=== PATIENT | male | born 1965 | race Caucasian/White ===

== ENCOUNTER 2016-09-02 13:17 | Inpatient (IN) | payer OTHER ==
[2016-09-02 16:22] VITALS: BMI 20.1
--- NOTE | 2016-09-02 17:26 | HP ---
COWS - Scale Resting Pulse: 0= IN 80 or Below Sweatin=Flushed/Facial Moisture Restless Observation: 1= Difficult to Sit Still Pupil Size: 0= Normal to Room Light Bone or Joint Aches: 2= Severe Diffuse Aches Runny Nose/ Eye Tearin= Runny Nose/Eyes GI Upset > 30mins: 0= None Tremor Observation: 2= Slight Tremor Visible Yawning Observation: 2= >3x During Session Anxiety or Irritability: 2=Irritable/Anxious Goose Flesh Skin: 3=Piloerection COWS Score: 16 Admission ROS S - HPI Chief Complaint: I want to be detoxed and get my life back. Allergies/Adverse Reactions: Allergies Allergy/AdvReac Type Severity Reaction Status Date / Time No Known Allergies Allergy Verified 09/02/16 17:08 History of Present Illness: pt is a 51yr old male with a history of heroin dependence seeking detox for treatment. Exam Limitations: No Limitations - Ebola screening Have you traveled outside of the country in the last 21 days: No Have you had contact with anyone from an Ebola affected area: No Have you been sick,other than usual withdrawal symptoms: No Do you have a fever: No - Review of Systems Constitutional: Chills, Diaphoresis, Loss of Appetite, Night Sweats, Changes in sleep, Unintentional Wgt. Loss EENT: reports: Blurred Vision, Tearing, Nose Congestion Respiratory: reports: No Symptoms reported Cardiac: reports: No Symptoms Reported GI: reports: Poor Appetite, Poor Fluid Intake : reports: No Symptoms Reported Musculoskeletal: reports: No Symptoms Reported Integumentary: reports: Flushing, Sweating Neuro: reports: Tingling, Tremors Endocrine: reports: Excessive Sweating, Flushing, Intolerance to Cold, Intolerance to Heat Hematology: reports: No Symptoms Reported Psychiatric: reports: No Sypmtoms Reported, Judgement Intact, Mood/Affect Appropiate, Orientated x3, Agitated, Anxious Other Systems: Reviewed and Negative Patient History - Patient Medical History Hx Anemia: No Hx Asthma: No Hx Chronic Obstructive Pulmonary Disease (COPD): No Hx Cancer: No Hx Cardiac Disorders: No Hx Congestive Heart Failure: No Hx Hypertension: No Hx Hypercholesterolemia: No Hx Pacemaker: No HX Cerebrovascular Accident: No Hx Seizures: No Hx Diabetes: No Hx Gastrointestinal Disorders: No Hx Liver Disease: No Hx Genitourinary Disorders: No Hx Sexually Transmitted Disorders: No Hx Renal Disease (ESRD): No Hx Thyroid Disease: No Hx Human Immunodeficiency Virus (HIV): No (negative) Hx Hepatitis C: No (negative) Hx Depression: No Hx Suicide Attempt: No Hx Bipolar Disorder: No Hx Schizophrenia: No Other Medical History: insomnia - Patient Surgical History Past Surgical History: Yes Hx Neurologic Surgery: No Hx Cataract Extraction: No Hx Cardiac Surgery: No Hx Lung Surgery: No Hx Breast Surgery: No Hx Breast Biopsy: No Hx Abdominal Surgery: No Hx Appendectomy: No Hx Cholecystectomy: No Hx Genitourinary Surgery: No Hx Section: No Hx Orthopedic Surgery: No Other Surgical History: removal of lipoma left shoulder Anesthesia Reaction: No - PPD History Previous Implant?: Yes Documented Results: Negative w/o proof PPD to be Administered?: Yes - Reproductive History Patient is a Female of Child Bearing Age (11 -55 yrs old): No - Smoking Cessation Smoking history: Current every day smoker Have you smoked in the past 12 months: Yes Aproximately how many cigarettes per day: 1 If you are a former smoker, when did you quit?: 2009 Hx Chewing Tobacco Use: No Initiated information on smoking cessation: Yes 'Breaking Loose' booklet given: 09/02/16 - Substance & Tx. History Hx Alcohol Use: Yes Hx Substance Use: Yes Substance Use Type: Alcohol, Heroin Hx Substance Use Treatment: Yes - Substances Abused Alcohol-beer Route: Oral Frequency: 3-6 times per week Amount used: 3 (12 oz.) Age of first use: 14 Date of Last Use: 09/02/16 Heroin Route: Inhalation Frequency: Daily Amount used: 5 bags daily Age of first use: 17 Date of Last Use: 09/02/16 Family Disease History - Family Disease History Family History: Denies Admission Physical Exam BHS - Vital Signs Vital Signs: Vital Signs - 24 hr 09/02/16 16:15 Temperature 97 F L Pulse Rate 66 Respiratory 20 Rate Blood Pressure 109/80 - Physical General Appearance: Yes: Appropriately Dressed, Moderate Distress, Thin, Tremorous, Irritable, Sweating, Anxious HEENTM: Yes: Hearing grossly Normal, Normal Voice, Nasal Congestion, Rhinorrhea Respiratory: Yes: Lungs Clear, Normal Breath Sounds, No Respiratory Distress Neck: Yes: No masses,lesions,Nodules Breast: Yes: Within Normal Limits Cardiology: Yes: Regular Rhythm, Regular Rate, S1, S2 Abdominal: Yes: Normal Bowel Sounds, Non Tender, Soft Genitourinary: Yes: Within Normal Limits Back: Yes: Normal Inspection Musculoskeletal: Yes: full range of Motion, Gait Steady Extremities: Yes: Normal Capillary Refill, Normal Inspection, Non-Tender, Tremors Neurological: Yes: Fully Oriented, Alert, Normal Response Integumentary: Yes: Normal Color, Diaphoresis Lymphatic: Yes: Within Normal Limits - Diagnostic (1) Nicotine dependence Current Visit: Yes Status: Chronic Qualifiers: Nicotine product type: cigarettes Substance use status: uncomplicated Qualified Code(s): F17.210 - Nicotine dependence, cigarettes, uncomplicated (2) Opioid dependence with withdrawal Current Visit: Yes Status: Chronic (3) Weight loss Current Visit: Yes Status: Chronic (4) Alcohol dependence Current Visit: No Status: Chronic Comment: drinks very little (5) Insomnia Current Visit: Yes Status: Chronic Cleared for Admission BHS - Detox or Rehab Detox Regimen/Protocol: Methadone BHS Breath Alcohol Content Breath Alcohol Content: 0 Urine Drug Screen - Results Drug Screen Negative: No Urine Drug Screen Results: OPI-Opiates
[2016-09-02] MEDS ORDERED: MENTHOL/PHENOL 1 EACH UD MM PRN (17:33)
[2016-09-02] MEDS ORDERED: hydrOXYzine PAMOATE 50 MG CAPSULE (FP) PO PRN (17:33)
[2016-09-02] MEDS ORDERED: LOPERAMIDE HCL 2 MG CAPSULE PO PRN (17:33)
[2016-09-02] MEDS ORDERED: MAGNESIUM CITRATE 300 ML BOTTLE PO PRN (17:33)
[2016-09-02] MEDS ORDERED: ACETAMINOPHEN 325 MG TABLET (FP) PO PRN (17:33)
[2016-09-02] MEDS ORDERED: P-EPHED 60MG/TRIPROLIDI 2.5MG TABLET PO PRN (17:33)
[2016-09-02] MEDS ORDERED: MAG HYDROX/AL HYDROX/SIMETH 30 ML UNIT-DOSE CUP PO PRN (17:33)
[2016-09-02] MEDS ORDERED: IBUPROFEN 400 MG TABLET (FP) PO PRN (17:33)
[2016-09-02] MEDS ORDERED: MAGNESIUM HYDROX 2400MG/30ML ORAL SUSPENSION 30 ML CUP PO PRN (17:33)
[2016-09-02] MEDS ORDERED: guaiFENesin/D-METHORPHAN HB 10 ML UNIT-DOSE CUPS PO PRN (17:33)
[2016-09-02] MEDS ORDERED: diphenhydrAMINE HCL 50 MG CAPSULE PO PRN (17:33)
[2016-09-02] MEDS ORDERED: METHADONE HCL 10 MG TABLET (FOR DETOX USE ONLY) PO ONE ×2 (18:45→23:00)
[2016-09-02] MEDS: diazePAM 5 MG TABLET PO PRN (19:41)
[2016-09-02] MEDS: THIAMINE HCL 100 MG TABLET (FP) PO SCH (22:16)
[2016-09-02 22:34] LABS: URINE APPEARANCE CLEAR; URINE BILIRUBIN NEGATIVE (NEGATIVE); URINE BLOOD NEGATIVE (NEGATIVE); URINE COLOR STRAW; URINE GLUCOSE (UA) NEGATIVE (NEGATIVE); URINE KETONE NEGATIVE (NEGATIVE); URINE LEUK ESTERASE NEGATIVE (NEGATIVE); URINE NITRITE NEGATIVE (NEGATIVE); URINE PROTEIN NEGATIVE (NEGATIVE); URINE UROBILINOGEN NEGATIVE E.U./dl (0.2-1.0)
[2016-09-03] MEDS: diazePAM 5 MG TABLET PO PRN (07:07)
[2016-09-03] MEDS ORDERED: METHADONE HCL 10 MG TABLET (FOR DETOX USE ONLY) PO ONE (10:00)
[2016-09-03] MEDS ORDERED: METHADONE HCL 10 MG TABLET (FOR DETOX USE ONLY) ONE (10:31)
--- NOTE | 2016-09-03 10:31 | PN ---
S CIWA - CIWA Score Nausea/Vomitin Muscle Tremors: 3 Anxiety: 2 Agitation: 2 Paroxysmal Sweats: 1-Minimal Palms Moist Orientation: 0-Oriented Tacttile Disturbances: 1-Very Mild Itch/Numbness Auditory Disturbances: 1-Very Mild Visual Disturbances: 1-Very Mild Sensitivity Headache: 2-Mild CIWA-Ar Total Score: 16 BHS COWS - Scale Resting Pulse: 1= [place] 81-100 Sweatin=Flushed/Facial Moisture Restless Observation: 3= Extraneous Movement Pupil Size: 1= Pupils >than Normal Bone or Joint Aches: 2= Severe Diffuse Aches Runny Nose/ Eye Tearin= Runny Nose/Eyes GI Upset > 30mins: 2= Nausea/Diarrhea Tremor Observation of Outstretched Hands: 2= Slight Tremor Visible Yawning Observation: 1= 1-2x During Session Anxiety or Irritability: 2=Irritable/Anxious Goose Flesh Skin: 0=Smooth Skin COWS Score: 18 S Progress Note (SOAP) Subjective: ALERT,IRRITABLE,ANXIOUS,INTERRUPTED SLEEP,TREMOR,PAIN IN THE BODY AND BACK, Objective: 09/03/16 10:28 Vital Signs Temperature 97.9 F 09/03/16 06:28 Pulse Rate 86 09/03/16 06:28 Respiratory Rate 20 09/03/16 06:28 Blood Pressure 112/66 09/03/16 06:28 O2 Sat by Pulse Oximetry (%) EKG SINUS BRADYCARDIA 57/MIN 09/03/16 10:29 NO CHEST PAIN,NO SOB,NO DIZZINESS Laboratory Last Values Urine Color Straw 09/02/16 21:43 Urine Appearance Clear 09/02/16 21:43 Urine pH 5.0 (5.0-8.0) 09/02/16 21:43 Ur Specific [place] 1.006 (1.001-1.035) 09/02/16 21:43 Urine Protein Negative (NEGATIVE) 09/02/16 21:43 Urine Glucose (UA) Negative (NEGATIVE) 09/02/16 21:43 Urine Ketones Negative (NEGATIVE) 09/02/16 21:43 Urine Blood Negative (NEGATIVE) 09/02/16 21:43 Urine Nitrite Negative (NEGATIVE) 09/02/16 21:43 Urine Bilirubin Negative (NEGATIVE) 09/02/16 21:43 Urine Urobilinogen Negative E.U./dl (0.2-1.0) 09/02/16 21:43 Ur Leukocyte Esterase Negative (NEGATIVE) 09/02/16 21:43 LABS PENDING Assessment: 09/03/16 10:29 WITHDRAWAL SYMPTOM 09/03/16 10:30 Plan: CONTINUE DETOX
[2016-09-03 10:40] LABS: MCH 29.4 pg (25.7-33.7); MCHC 33.3 g/dl (32.0-35.9); MEAN CELL VOLUME 88.3 fl (80-96); MEAN PLT VOLUME 10.1 fl (7.5-11.1); PLATELET COUNT 54 K/MM3 (134-434); RDW 13.1 % (11.9-15.9); WHITE BLOOD COUNT 4.5 K/mm3 (4.0-10.0)
[2016-09-03] MEDS: PRENATAL VITAMINS W/ FOLIC ACID TABLET (FP) PO SCH (10:59)
[2016-09-03 12:24] LABS: ALBUMIN 4.1 g/dl (3.4-5.0); ANION GAP 8 (8-16); CALCIUM 8.5 mg/dL (8.5-10.1); CO2 27 mmol/L (21-32); GLUCOSE,RANDOM 99 mg/dL (74-106)
[2016-09-03 12:27] LABS: ALK PHOS 45 U/L (45-117); BILIRUBIN,TOTAL 0.7 mg/dL (0.2-1.0); SGOT/AST 22 U/L (15-37); SGPT/ALT 30 U/L (12-78); TOT PROT 7.1 g/dl (6.4-8.2)
[2016-09-03 13:08] LABS: HIV 1 AGp24 NEGATIVE
[2016-09-03 13:10] LABS: HIV 1 & 2 AB NEGATIVE
--- NOTE | 2016-09-03 16:25 | CONSULT ---
[facility] Psychiatric Consult - Data Date of interview: 09/03/16 Admission source: [facility] Identifying data: Readmission to [facility] for this 51 y/o male seeking detox treatment for alcohol and heroin dependence.Patient is single ( common-law),a father of one,domiciled and seasonally employed. Substance Abuse History: - Smoking Cessation. Smoking history: Current every day smoker. Have you smoked in the past 12 months: Yes. Aproximately how many cigarettes per day: 1. If you are a former smoker, when did you quit?: 2009. Hx Chewing Tobacco Use: No. Initiated information on smoking cessation: Yes. ' Breaking Loose' booklet given: 09/02/16. - Substance & Tx. History. Hx Alcohol Use: Yes. Hx Substance Use: Yes. Substance Use Type: Alcohol, Heroin. Hx Substance Use Treatment: Yes. - Substances Abused. Alcohol-beer. Route: Oral. Frequency: 3-6 times per week. Amount used: 3 (12 oz.). Age of first use: 14. Date of Last Use: 09/02/16. Heroin. Route: Inhalation. Frequency: Daily. Amount used: 5 bags daily. Age of first use: 17. Date of Last Use: 09/02/16. Confirmed by patient. Medical History: GERD and a history of surgery for excision of lipoma (left shoulder). Psychiatric History: Patient denies. Physical/Sexual Abuse/Trauma History: Patient denies. Additional Comment: Urine Drug Screen Results: OPI-Opiates.Noted. Mental Status Exam - Mental Status Exam Alert and Oriented to: Time, Place, Person Cognitive Function: Good Patient Appearance: Well Groomed Mood: Hopeful, Euthymic Affect: Appropriate, Normal Range Patient Behavior: Fatigued, Appropriate, Cooperative Speech Pattern: Clear Voice Loudness: Normal Thought Process: Goal Oriented Thought Disorder: Not Present Hallucinations: Denies Suicidal Ideation: Denies Homicidal Ideation: Denies Insight/Judgement: Fair Sleep: Poorly, Difficulty falling asleep Appetite: Good Muscle strength/Tone: Normal Gait/Station: Normal Psychiatric Findings - Problem List ([place] 1, 2,3) (1) Opioid dependence with withdrawal Current Visit: Yes Status: Acute (2) Alcohol abuse Current Visit: Yes Status: Acute (3) Nicotine dependence Current Visit: Yes Status: Acute Qualifiers: Nicotine product type: cigarettes Substance use status: uncomplicated Qualified Code(s): F17.210 - Nicotine dependence, cigarettes, uncomplicated (4) Insomnia Current Visit: Yes Status: Acute - Initial Treatment Plan Initial Treatment Plan: Psychoeducation.Detoxification.zolpidem 10 mg po hs prn.Patient made aware of risk of parasomnias.He agrees with plan.Observation.
[2016-09-03] MEDS: THIAMINE HCL 100 MG TABLET (FP) PO SCH (22:57)
[2016-09-03] MEDS: ZOLPIDEM TARTRATE 5 MG TABLET PO PRN (22:58)
[2016-09-04] MEDS ORDERED: METHADONE HCL 5 MG TABLET (FOR DETOX USE ONLY) PO ONE (10:00)
[2016-09-04] MEDS: PRENATAL VITAMINS W/ FOLIC ACID TABLET (FP) PO SCH (10:15)
[2016-09-04] MEDS: diazePAM 5 MG TABLET PO PRN ×2 (10:16→17:27)
--- NOTE | 2016-09-04 11:33 | PN ---
S CIWA - CIWA Score Nausea/Vomitin Muscle Tremors: 3 Anxiety: 3 Agitation: 2 Paroxysmal Sweats: 1-Minimal Palms Moist Orientation: 0-Oriented Tacttile Disturbances: 1-Very Mild Itch/Numbness Auditory Disturbances: 1-Very Mild Visual Disturbances: 1-Very Mild Sensitivity Headache: 2-Mild CIWA-Ar Total Score: 17 BHS COWS - Scale Resting Pulse: 0= [place] 80 or Below Sweatin= Chills/Flushing Restless Observation: 3= Extraneous Movement Pupil Size: 1= Pupils >than Normal Bone or Joint Aches: 2= Severe Diffuse Aches Runny Nose/ Eye Tearin= Runny Nose/Eyes GI Upset > 30mins: 2= Nausea/Diarrhea Tremor Observation of Outstretched Hands: 2= Slight Tremor Visible Yawning Observation: 1= 1-2x During Session Anxiety or Irritability: 2=Irritable/Anxious Goose Flesh Skin: 0=Smooth Skin COWS Score: 16 S Progress Note (SOAP) Subjective: ALERT,IRRITABLE,ANXIOUS,INTERRUPTED SLEEP,PAIN IN THE BODY AND BACK,TREMOR Objective: 09/04/16 11:30 Vital Signs Temperature 97.7 F 09/04/16 09:55 Pulse Rate 63 09/04/16 09:55 Respiratory Rate 18 09/04/16 09:55 Blood Pressure 103/66 09/04/16 09:55 O2 Sat by Pulse Oximetry (%) Laboratory Last Values WBC 4.5 K/mm3 (4.0-10.0) 09/03/16 06:00 RBC 4.60 M/mm3 (4.00-5.60) 09/03/16 06:00 Hgb 13.5 GM/dL (11.7-16.9) 09/03/16 06:00 Hct 40.6 % (35.4-49) 09/03/16 06:00 MCV 88.3 fl (80-96) 09/03/16 06:00 MCHC 33.3 g/dl (32.0-35.9) 09/03/16 06:00 RDW 13.1 % (11.9-15.9) 09/03/16 06:00 Plt Count 54 K/MM3 (134-434) L D 09/03/16 06:00 MPV 10.1 fl (7.5-11.1) D 09/03/16 06:00 Sodium 142 mmol/L (136-145) 09/03/16 06:00 Potassium 4.1 mmol/L (3.5-5.1) 09/03/16 06:00 Chloride 107 mmol/L (98-107) 09/03/16 06:00 Carbon Dioxide 27 mmol/L (21-32) 09/03/16 06:00 Anion Gap 8 (8-16) 09/03/16 06:00 BUN 12 mg/dL (7-18) 09/03/16 06:00 Creatinine 1.0 mg/dL (0.7-1.3) 09/03/16 06:00 Creat Clearance w eGFR > 60 (>60) 09/03/16 06:00 Random Glucose 99 mg/dL (74-106) D 09/03/16 06:00 Calcium 8.5 mg/dL (8.5-10.1) 09/03/16 06:00 Total Bilirubin 0.7 mg/dL (0.2-1.0) D 09/03/16 06:00 AST 22 U/L (15-37) D 09/03/16 06:00 ALT 30 U/L (12-78) 09/03/16 06:00 Alkaline Phosphatase 45 U/L (45-117) 09/03/16 06:00 Total Protein 7.1 g/dl (6.4-8.2) 09/03/16 06:00 Albumin 4.1 g/dl (3.4-5.0) 09/03/16 06:00 Urine Color Straw 09/02/16 21:43 Urine Appearance Clear 09/02/16 21:43 Urine pH 5.0 (5.0-8.0) 09/02/16 21:43 Ur Specific [place] 1.006 (1.001-1.035) 09/02/16 21:43 Urine Protein Negative (NEGATIVE) 09/02/16 21:43 Urine Glucose (UA) Negative (NEGATIVE) 09/02/16 21:43 Urine Ketones Negative (NEGATIVE) 09/02/16 21:43 Urine Blood Negative (NEGATIVE) 09/02/16 21:43 Urine Nitrite Negative (NEGATIVE) 09/02/16 21:43 Urine Bilirubin Negative (NEGATIVE) 09/02/16 21:43 Urine Urobilinogen Negative E.U./dl (0.2-1.0) 09/02/16 21:43 Ur Leukocyte Esterase Negative (NEGATIVE) 09/02/16 21:43 RPR Titer Nonreactive (NONREACTIVE) 09/03/16 06:00 HIV 1&2 Antibody Screen Negative 09/03/16 08:40 HIV P24 Antigen Negative 09/03/16 08:40 Assessment: 09/04/16 11:31 WITHDRAWAL SYMPTOM Plan: CONTINUE DETOX,THROMBOCYTOPENIA PLATELET COUNT 54,000,WILL REPEAT ABC IN AM
--- NOTE | 2016-09-04 11:39 | EKG ---
Test Reason : Blood Pressure : / mmHG Vent. Rate : 053 BPM Atrial Rate : 053 BPM P-R Int : 156 ms QRS Dur : 088 ms QT Int : 422 ms P-R-T Axes : 068 084 071 degrees QTc Int : 395 ms SINUS BRADYCARDIA OTHERWISE NORMAL ECG NO PREVIOUS ECGS AVAILABLE Confirmed by TIANNA KEARNS MD ([id number]) on 09/04/2016 11:39:24 AM Referred By: Confirmed By:TIANNA KEARNS MD
[2016-09-04] MEDS: ZOLPIDEM TARTRATE 5 MG TABLET PO PRN (22:22)
[2016-09-04] MEDS: THIAMINE HCL 100 MG TABLET (FP) PO SCH (22:22)
[2016-09-05] MEDS ORDERED: METHADONE HCL 5 MG TABLET (FOR DETOX USE ONLY) PO ONE (10:00)
[2016-09-05 10:01] LABS: MCH 29.3 pg (25.7-33.7); MCHC 33.3 g/dl (32.0-35.9); MEAN CELL VOLUME 87.8 fl (80-96); WHITE BLOOD COUNT 5.8 K/mm3 (4.0-10.0)
[2016-09-05] MEDS: PRENATAL VITAMINS W/ FOLIC ACID TABLET (FP) PO SCH (10:18)
[2016-09-05] MEDS: diazePAM 5 MG TABLET PO PRN ×2 (10:18→17:21)
[2016-09-05 10:26] LABS: PLATELET COUNT 35 K/MM3 (134-434)
--- NOTE | 2016-09-05 11:02 | PN ---
BHS Progress Note (SOAP) Subjective: feeling ok , no bleeding Objective: 09/05/16 11:00 Vital Signs Temperature 98.1 F 09/05/16 10:12 Pulse Rate 69 09/05/16 10:12 Respiratory Rate 18 09/05/16 10:12 Blood Pressure 112/71 09/05/16 10:12 O2 Sat by Pulse Oximetry (%) Laboratory Tests 09/02/16 09/03/16 09/03/16 21:43 06:00 06:00 WBC 4.5 RBC 4.60 Hgb 13.5 Hct 40.6 MCV 88.3 MCHC 33.3 RDW 13.1 Plt Count 54 L D MPV 10.1 D Sodium 142 Potassium 4.1 Chloride 107 Carbon Dioxide 27 Anion Gap 8 BUN 12 Creatinine 1.0 Creat Clearance w eGFR > 60 Random Glucose 99 D Calcium 8.5 Total Bilirubin 0.7 D AST 22 D ALT 30 Alkaline Phosphatase 45 Total Protein 7.1 Albumin 4.1 Urine Color Straw Urine Appearance Clear Urine pH 5.0 Ur Specific [place] 1.006 Urine Protein Negative Urine Glucose (UA) Negative Urine Ketones Negative Urine Blood Negative Urine Nitrite Negative Urine Bilirubin Negative Urine Urobilinogen Negative Ur Leukocyte Esterase Negative RPR Titer HIV 1&2 Antibody Screen HIV P24 Antigen 09/03/16 09/03/16 09/05/16 06:00 08:40 07:00 WBC 5.8 RBC 4.62 Hgb 13.5 Hct 40.5 MCV 87.8 MCHC 33.3 RDW 13.0 Plt Count 35 L* D MPV 9.0 D Sodium Potassium Chloride Carbon Dioxide Anion Gap BUN Creatinine Creat Clearance w eGFR Random Glucose Calcium Total Bilirubin AST ALT Alkaline Phosphatase Total Protein Albumin Urine Color Urine Appearance Urine pH Ur Specific [place] Urine Protein Urine Glucose (UA) Urine Ketones Urine Blood Urine Nitrite Urine Bilirubin Urine Urobilinogen Ur Leukocyte Esterase RPR Titer Nonreactive HIV 1&2 Antibody Screen Negative HIV P24 Antigen Negative pt aox3 in nad ambulating repeat platlets 35k Assessment: 09/05/16 11:01 withdrawal sx' thrombocytopenia Plan: cont. detox increase fluids d/c motrin report any bleeding to staff f/up platlet abn with PMD
[2016-09-05] MEDS: ZOLPIDEM TARTRATE 5 MG TABLET PO PRN (22:41)
[2016-09-05] MEDS: THIAMINE HCL 100 MG TABLET (FP) PO SCH (22:41)
[2016-09-06] MEDS ORDERED: METHADONE HCL 10 MG TABLET (FOR DETOX USE ONLY) PO ONE (10:00)
[2016-09-06] MEDS: PRENATAL VITAMINS W/ FOLIC ACID TABLET (FP) PO SCH (10:45)
--- NOTE | 2016-09-06 11:24 | PN ---
BHS Progress Note (SOAP) Subjective: feeling much better anxious Objective: 09/06/16 11:23 Vital Signs Temperature 98.1 F 09/06/16 10:01 Pulse Rate 82 09/06/16 10:01 Respiratory Rate 18 09/06/16 10:01 Blood Pressure 111/60 09/06/16 10:01 O2 Sat by Pulse Oximetry (%) awake/alert ambulating no acute distress Assessment: 09/06/16 11:24 withdrawal sx Plan: continue detox increase fluids d/c in am
[2016-09-06] MEDS: THIAMINE HCL 100 MG TABLET (FP) PO SCH (22:28)
[2016-09-06] MEDS: ZOLPIDEM TARTRATE 5 MG TABLET PO PRN (22:29)
[2016-09-07] MEDS ORDERED: METHADONE HCL 5 MG TABLET (FOR DETOX USE ONLY) PO ONE (06:00)
--- NOTE | 2016-09-07 08:41 | DS ---
[facility] Detox Discharge Summary Admission Date: 09/02/16 Discharge Date: 09/07/16 - History Present History: Alcohol Dependence, Opioid Dependence - Physical Exam Results Vital Signs: Vital Signs Temperature 98.2 F 09/07/16 06:01 Pulse Rate 69 09/07/16 06:01 Respiratory Rate 16 09/07/16 06:01 Blood Pressure 106/66 09/07/16 06:01 O2 Sat by Pulse Oximetry (%) - Treatment Hospital Course: Detox Protocol Followed, Detoxed Safely, Responded well, Discharged Condition Good, Rehab Referral Accepted - Medication Discharge Medications: Ambulatory Orders NK [No Known Home Medication] 09/02/16 - Diagnosis (1) Nicotine dependence Current Visit: Yes Status: Chronic Qualifiers: Nicotine product type: cigarettes Substance use status: uncomplicated Qualified Code(s): F17.210 - Nicotine dependence, cigarettes, uncomplicated (2) Opioid dependence with withdrawal Current Visit: Yes Status: Chronic (3) Weight loss Current Visit: Yes Status: Chronic (4) Alcohol dependence Current Visit: Yes Status: Chronic (5) Insomnia Current Visit: Yes Status: Chronic - AMA Did Patient Leave Against Medical Advice: No
[2016-09-07 10:02] VITALS: BP 99/63; PULSE 82; TEMP 98.3
== END 2016-09-07 09:02 | disposition home or self-care (01) | DRG 773 ==
LOC: YASAS 13:17 → Y6N 17:51
PROVIDERS: ADMIT Internal Medicine Addiction Medicine; ATTEND Internal Medicine Addiction Medicine
PROC: HZ2ZZZZ Detoxification Services for Substance Abuse Treatment (ICD-10-PCS; principal; 2016-09-02)
DX: F11.23 Opioid dependence with withdrawal (principal); F10.20 Alcohol dependence, uncomplicated; F17.210 Nicotine dependence, cigarettes, uncomplicated; R00.0 Tachycardia, unspecified; D69.6 Thrombocytopenia, unspecified; G47.00 Insomnia, unspecified; Z87.898 Personal history of other specified conditions
CPT/HCPCS: 36415; 80053; 81003; 85027; 86593; 87389; 93005; 93010

== ENCOUNTER 2024-08-13 16:47 | Inpatient (IN) | payer OTHER ==
[2024-08-13 18:24] VITALS: BMI 25.4
[2024-08-13] MEDS ORDERED: guaiFENesin 600 MG TABLET.ER (FP) PO PRN (18:51)
[2024-08-13] MEDS ORDERED: BISMUTH SUBSALICYLATE 524 MG/30 ML PO PRN (18:51)
[2024-08-13] MEDS ORDERED: BENZONATATE 200 MG CAPSULE PO PRN (18:51)
[2024-08-13] MEDS ORDERED: NALOXONE (NARCAN) HCL 4 MG/0.1 ML SPRAY NS PRN (18:51)
[2024-08-13] MEDS ORDERED: ONDANSETRON *ODT* 4 MG TABLET SL PRN (18:51)
[2024-08-13] MEDS ORDERED: LOPERAMIDE HCL 2 MG CAPSULE PO PRN (18:51)
[2024-08-13] MEDS ORDERED: IBUPROFEN 400 MG TABLET (FP) PO PRN (18:51)
[2024-08-13] MEDS ORDERED: MAGNESIUM HYDROX 2400MG/30ML ORAL SUSPENSION 30 ML CUP PO PRN (18:51)
[2024-08-13] MEDS ORDERED: POLYETHYLENE GLYCOL (HEALTHYLAX) 3350 17 GM PACKET PO PRN (18:51)
[2024-08-13] MEDS ORDERED: MAG HYDROX/AL HYDROX/SIMETH 30 ML UNIT-DOSE CUP PO PRN (18:51)
[2024-08-13] MEDS ORDERED: DICYCLOMINE HCL 10 MG CAPSULE PO PRN (18:51)
[2024-08-13] MEDS ORDERED: ACETAMINOPHEN 325 MG TABLET (FP) PO PRN (18:51)
[2024-08-13] MEDS ORDERED: BENZOCAINE/MENTHOL (CHLORASEPTIC ) LOZENGE MM PRN (18:51)
[2024-08-13] MEDS: THIAMINE 100 MG TABLET PO SCH (21:04)
[2024-08-13] MEDS: MELATONIN 5 MG TABLETS PO SCH (21:04)
[2024-08-13] MEDS: hydrOXYzine PAMOATE 25 MG CAPSULE (FP) PO PRN (21:36)
[2024-08-13] MEDS: METHOCARBAMOL 500 MG TABLET PO PRN (21:36)
[2024-08-14] MEDS: PRENATAL VITAMINS W/ FOLIC ACID TABLET (FP) PO SCH (09:51)
[2024-08-14] MEDS: FLU VACCINE (FLULAVAL) PF 45 MCG/0.5 ML SYRINGE 2024-2025 IM ONE (11:08)
[2024-08-14 12:24] LABS: HEMOGLOBIN 14.3 GM/dL (11.7-16.9); MCH 29.7 pg (25.7-33.7); MEAN CELL VOLUME 87.3 fl (80-96); MEAN PLT VOLUME 7.8 fl (7.5-11.1); PLATELET COUNT 125 10^3/uL (134-434); RBC 4.81 M/mm3 (4.00-5.60); RDW 13.6 % (11.9-15.9); WHITE BLOOD COUNT 3.4 K/mm3 (4.0-10.0)
[2024-08-14 12:30] LABS: CHLORIDE 105 mmol/L (98-107); POTASSIUM 3.9 mmol/L (3.5-5.1); SODIUM 143 mmol/L (136-145)
[2024-08-14 12:32] LABS: CALCIUM 9.3 mg/dL (8.5-10.1)
[2024-08-14 12:33] LABS: ALBUMIN 3.8 g/dl (3.4-5.0); ANION GAP 7 mmol/L (4-13); BLOOD UREA NITROGEN 11.1 mg/dL (7-18); CO2 31 mmol/L (21-32); GLUCOSE,RANDOM 65 mg/dL (74-106)
[2024-08-14 12:36] LABS: CREATININE 0.9 mg/dL (0.55-1.3); SGOT/AST 21 U/L (15-37); SGPT/ALT 26 U/L (13-61)
[2024-08-14 12:37] LABS: BILIRUBIN,TOTAL 1.2 mg/dL (0.2-1)
[2024-08-14 12:39] LABS: ALK PHOS 66 U/L (45-117)
[2024-08-14 13:35] LABS: HIV INTERPRETATION NEGATIVE (NEGATIVE)
[2024-08-14] MEDS: diphenhydrAMINE HCL 25 MG CAPSULE (FP) PO PRN (22:14)
[2024-08-14] MEDS: IBUPROFEN 600 MG TABLET (FP) PO PRN (23:20)
[2024-08-15 09:05] VITALS: BP 134/79; PULSE 78; RESP 18; TEMP 97.7
== END 2024-08-15 09:25 | disposition home or self-care (01) | DRG 773 ==
LOC: YASAS 16:47 → Y3N 20:49
PROVIDERS: ADMIT Allergy & Immunology; ATTEND Allergy & Immunology
PROC: HZ2ZZZZ Detoxification Services for Substance Abuse Treatment (ICD-10-PCS; principal; 2024-08-13)
DX: F11.20 Opioid dependence, uncomplicated (principal); F10.20 Alcohol dependence, uncomplicated; F14.10 Cocaine abuse, uncomplicated; F51.05 Insomnia due to other mental disorder; Z87.891 Personal history of nicotine dependence; Z59.00 Homelessness unspecified; Z56.0 Unemployment, unspecified
CPT/HCPCS: 36415; 80053; 80305; 80307; 85027; 86780; 87389; 90656; 93005; 93010; G0008